=== PATIENT | male | born 1985 | race Caucasian/White ===

== ENCOUNTER 2016-12-04 21:41 | Emergency (ER) | payer MEDICAID, OTHER ==
[~2016-12-04] VITALS: Ht 175.3 cm; Wt 54.0 kg
[2016-12-04 21:51] VITALS: BP 129/74; PULSE 92; RESP 18; TEMP 98.4; O2SAT 99
[2016-12-04 21:54] VITALS: BP 129/74; PULSE 92; RESP 20; TEMP 98.4; O2SAT 99
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
[2016-12-04 22:53] LABS: AUTOMATED NEUTROPHIL # 5.6 TH/MM3 (1.8-7.7); BASOPHIL % 0.4 % (0.0-2.0); EOSINOPHIL # 0.1 TH/MM3 (0-0.4); EOSINOPHIL % 1.6 % (0.0-4.0); HEMATOCRIT 43.1 % (39.0-51.0); HEMO FLAGS DIFF FINAL; LYMPH % 20.5 % (9.0-44.0); LYMPHOCYTE # 1.6 TH/MM3 (1.0-4.8); MEAN CELL VOLUME 86.2 FL (80.0-100.0); MEAN CORPUSCULAR HEMOGLOBIN 29.8 PG (27.0-34.0); MEAN CORPUSCULAR HGB CONC 34.6 % (32.0-36.0); MONO % 7.2 % (0.0-8.0); NEUT % 70.3 % (16.0-70.0); PLATELET COUNT 175 TH/MM3 (150-450); RED CELL DISTRIBUTION WIDTH 12.7 % (11.6-17.2)
[2016-12-04 22:54] LABS: BLOOD, URINE NEG (NEG); GLUCOSE,URINE NEG (NEG); HYALINE CAST, URINE 1 /lpf (RARE); KETONE, URINE NEG (NEG); MUCUS URINE FEW /lpf (OCC); NITRITE,URINE NEG (NEG); SQUAMOUS EPITHELIAL CELL URINE <1 /hpf (0-5); URINE COLOR YELLOW (YELLW/STRAW)
[2016-12-04 22:55] LABS: COMMENT (UR) CULT NOT INDICATED; CULTURE IF INDICATED CULT NOT INDICATED
[2016-12-04 23:10] LABS: ANION GAP 7 MEQ/L (5-15); AST (GOT) 11 U/L (15-37); BICARBONATE 27.9 MEQ/L (21.0-32.0); BLOOD UREA NITROGEN 5 MG/DL (7-18); CHLORIDE 107 MEQ/L (98-107); GLOMERULAR FILTRATION RATE 104 ML/MIN (>89); POTASSIUM 3.8 MEQ/L (3.5-5.1); SODIUM (NA) 142 MEQ/L (136-145)
[2016-12-04 23:12] LABS: ALT (GPT) 17 U/L (12-78)
[2016-12-04 23:13] LABS: ALKALINE PHOSPHATASE 67 U/L (45-117); TOTAL BILIRUBIN ADULT 1.3 MG/DL (0.2-1.0)
[2016-12-05 10:14] VITALS: BP 120/76; PULSE 61; RESP 16; O2SAT 100
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
[2016-12-05 15:35] VITALS: BP 120/61; TEMP 97.3
--- NOTE | 2016-12-05 15:50 | PD ---
Physical Exam Time Seen by Provider: 15:20 Data Data Last Documented VS Vital Signs Date Time Temp Pulse Resp B/P (MAP) Pulse Ox O2 Delivery O2 Flow Rate FiO2 12/05/16 15:35 97.3 66 16 120/61 (80) 100 12/05/16 10:14 Room Air Orders Orders Complete Blood Count With Diff (12/04/16 22:02) Comprehensive Metabolic Panel (12/04/16 22:02) Urinalysis - C+S If Indicated (12/04/16 22:02) Psych Screen (12/04/16 22:02) Drug Screen, Random Urine (12/04/16 22:02) Diet Regular Basic (12/05/16 Breakfast) Diet Regular Basic (12/05/16 Lunch) Labs Laboratory Tests Test 12/04/16 22:33 12/04/16 22:35 White Blood Count 8.0 TH/MM3 Red Blood Count 5.00 MIL/MM3 Hemoglobin 14.9 GM/DL Hematocrit 43.1 % Mean Corpuscular Volume 86.2 FL Mean Corpuscular Hemoglobin 29.8 PG Mean Corpuscular Hemoglobin Concent 34.6 % Red Cell Distribution Width 12.7 % Platelet Count 175 TH/MM3 Mean Platelet Volume 8.6 FL Neutrophils (%) (Auto) 70.3 % Lymphocytes (%) (Auto) 20.5 % Monocytes (%) (Auto) 7.2 % Eosinophils (%) (Auto) 1.6 % Basophils (%) (Auto) 0.4 % Neutrophils # (Auto) 5.6 TH/MM3 Lymphocytes # (Auto) 1.6 TH/MM3 Monocytes # (Auto) 0.6 TH/MM3 Eosinophils # (Auto) 0.1 TH/MM3 Basophils # (Auto) 0.0 TH/MM3 CBC Comment DIFF FINAL Differential Comment Blood Urea Nitrogen 5 MG/DL Creatinine 0.87 MG/DL Random Glucose 91 MG/DL Total Protein 7.3 GM/DL Albumin 4.5 GM/DL Calcium Level 8.5 MG/DL Alkaline Phosphatase 67 U/L Aspartate Amino Transf (AST/SGOT) 11 U/L Alanine Aminotransferase (ALT/SGPT) 17 U/L Total Bilirubin 1.3 MG/DL Sodium Level 142 MEQ/L Potassium Level 3.8 MEQ/L Chloride Level 107 MEQ/L Carbon Dioxide Level 27.9 MEQ/L Anion Gap 7 MEQ/L Estimat Glomerular Filtration Rate 104 ML/MIN Urine Color YELLOW Urine Turbidity CLEAR Urine pH 7.0 Urine Specific [place] 1.015 Urine Protein NEG mg/dL Urine Glucose (UA) NEG mg/dL Urine Ketones NEG mg/dL Urine Occult Blood NEG Urine Nitrite NEG Urine Bilirubin NEG Urine Urobilinogen LESS THAN 2.0 MG/DL Urine Leukocyte Esterase NEG Urine RBC 1 /hpf Urine WBC 1 /hpf Urine Squamous Epithelial Cells <1 /hpf Urine Hyaline Casts 1 /lpf Urine Mucus FEW /lpf Microscopic Urinalysis Comment CULT NOT INDICATED Urine Opiates Screen NEG Urine Barbiturates Screen NEG Urine Amphetamines Screen NEG Urine Benzodiazepines Screen NEG Urine Cocaine Screen NEG Urine Cannabinoids Screen NEG MDM Medical Record Reviewed: Yes Supervised Visit with INDU: No Narrative Course This patient's Souza act has been lifted by the psychiatrist. He is medically cleared to go home. Diagnosis Primary Impression: Adjustment disorder with mixed disturbance of emotions and conduct Med/Other Pt SpecificInfo: No Change to Meds Scripts No Active Prescriptions or Reported Meds Disposition: DISCHARGE HOME Condition: Stable Ralph Angela Dec 05, 2016 15:50
== END 2016-12-05 16:48 | disposition home or self-care (01) ==
LOC: NEPD 21:41 → NEPJ 12-05 16:48
DX: F43.25 Adjustment disorder with mixed disturbance of emotions and conduct (principal); F84.0 Autistic disorder; F79 Unspecified intellectual disabilities
CPT/HCPCS: 80053; 80307; 81001; 85025; 99284